=== PATIENT | female | born 1945 | race Caucasian/White ===

== ENCOUNTER 2018-01-24 12:10 | Emergency (ER) | payer MEDICARE, OTHER ==
[2018-01-24 12:26] VITALS: BP 148/69
--- NOTE | 2018-01-24 12:33 | ED Physician Documentation ---
Female Urogenital Problems - HISTORIAN Historian: patient - HPI Stated Complaint: Painful Urination Chief Complaint: Female Urogenital Problems Further Comments: yes (72 year old female patient presents with complaints of dysuria, chills, and frequency x 24 hours) - Associated Symptoms Urinary Symptoms: frequent urination, urgency w/ urination, pain w/ urination - ROS CONST: none GI/: denies: nausea, vomiting, decreased appetite, diarrhea, black stools, bloody stools, other CVS/RESP: none EYES/ENT: none NEURO/PSYCH: none - PAST HX Past History: denies: none Other History: diabetes Type 2, hypertension Allergies/Adverse Reactions: Allergies Allergy/AdvReac Type Severity Reaction Status Date / Time No Known Drug Allergies Allergy Unverified 01/21/14 15:33 Home Medications: Ambulatory Orders Medication Instructions Recorded Ciprofloxacin HCl [Cipro] 500 mg PO BID #14 tablet 01/24/18 - SOCIAL HX Smoking History: non-smoker - FAMILY HX Family History: denies: none - VITAL SIGNS Vital Signs: Vital Signs Temp Pulse Resp BP Pulse Ox 98.2 F 72 18 148/69 99 01/24/18 12:28 01/24/18 12:28 01/24/18 12:28 01/24/18 12:28 01/24/18 12:28 - REVIEWED ASSESSMENTS Nursing Assessment Reviewed: Yes Vitals Reviewed: Yes Progress - Progress Progress: UA obtained; will treat with cipro. Patient has taken 1 day of Azo. Reviewed discharge instructions - verbalized understanding. ED Results Lab/Radiology - Orders Orders: ED Orders Category Date Time Status UA W/MICRO IF INDICATED Stat Lab 01/24/18 12:19 Ordered Female Urogenital Problems - EXAM General Appearance: no acute distress, alert EENT: eye inspection normal, JOAQUIN Respiratory: no resp. distress, breath sounds nml CVS: reg rate & rhythm, heart sounds normal Abdomen: soft, non-tender Skin: color nml, no rash, warm,dry Extremities: non-tender, normal range of motion, no evidence of injury, no edema , J, TOWN [employer]ERK Neuro: oriented X3, motor nml, sensation nml, mood/affect nml Discharge Clincal Impression: Urinary tract infection Qualifiers: Urinary tract infection type: acute cystitis Hematuria presence: with hematuria Qualified Code(s): N30.01 - Acute cystitis with hematuria Prescriptions: Ciprofloxacin HCl [Cipro] 500 mg PO BID #14 tablet Condition: Stable Disposition: 01 HOME, SELF-CARE Decision to Admit: NO Decision Time: 12:37
[2018-01-24 15:59] LABS: APPEARANCE,URINE CLOUDY (CLEAR); COLOR,URINE AMBER (YELLOW); OCCULT BLOOD,URINE 3+ (NEGATIVE)
== END 2018-01-24 12:28 | disposition home or self-care (01) ==
LOC: ED 12:10
DX: N30.01 Acute cystitis with hematuria (principal)
CPT/HCPCS: 81002; 87086; 87186; 99282

== ENCOUNTER 2018-09-19 10:28 | Outpatient (CLI) | payer MEDICARE, OTHER ==
--- NOTE | 2018-09-19 14:49 | Diagnostic Imaging Report ---
<p>Your browser does not support iframes.</p> REZA RAMON [facility] [address] [facility] [address] [id number] Report Submission Date: Sep 19, 2018 1:23:19 PM WEB ENGINEER Patient Study Name: KUN SAHA Date: Sep 19, 2018 11:02:30 AM WEB ENGINEER Modality Type: US Gender: F Description: US TRANSABDOMINAL PELVIS : 49 Institution: [facility] Physician: REZA RAMON US TRANSABDOMINAL PELVIS CLINICAL HISTORY: L ovarian mass COMPARISON: None FINDINGS: Uterus size: 3.7 x 3.2 x 4.9 cm Left ovary size: 5.1 x 4.7 x 4.9 cm A left ovarian cyst measures up to 4.8 cm. No suspicious or solid component is identified. The right ovary is not seen. There is no evidence of ovarian torsion. The endometrial bilayer thickness measures 5 mm, which is within normal limits for this postmenopausal patient. A subtle round hypoechoic lesion within the myometrium of the uterus measures 2.5 x 1.6 x 2.2 cm and is consistent with an intramural uterine fibroid. No free fluid is present in the cul-de-sac. There is a small amount of debris in the urinary bladder. IMPRESSION: 1. A 4.8 cm left ovarian cyst. Annual follow-up pelvic ultrasound is recommended. 2. Uterine fibroid. 3. Small amount of debris in the urinary bladder, which can be seen in the setting of cystitis. Electronically signed on Sep 19, 2018 1:23:19 PM WEB ENGINEER by: Shaggy HOOK
== END 2018-09-19 10:30 ==
LOC: RAD 10:28
PROVIDERS: ATTEND Family Medicine
DX: N83.9 Noninflammatory disorder of ovary, fallopian tube and broad ligament, unspecified (principal); N83.202 Unspecified ovarian cyst, left side; D25.9 Leiomyoma of uterus, unspecified
CPT/HCPCS: 76856